=== PATIENT | male | born 1935 | race Caucasian/White ===

== ENCOUNTER 2017-08-13 08:11 | Day surgery (SDC) | payer MEDICARE ==
[2017-08-12 14:03] VITALS: BP 124/63
[2017-08-12 14:07] LABS: BASOPHILS # (AUTO) 0.07 x10^3/uL (0-0.1); BASOPHILS % (AUTO) 1 % (0-1); EOSINOPHILS # (AUTO) 0.08 x10^3/uL (0-0.4); EOSINOPHILS % (AUTO) 1 % (1-7); LYMPHOCYTES # (AUTO) 1.56 x10^3/uL (1-3.4); LYMPHOCYTES % (AUTO) 21 % (22-44); MD NO; MEAN CORPUSCULAR HEMOGLOBIN 33.9 pg (27.5-34.5); MEAN CORPUSCULAR HGB CONC 33.5 g/dL (33.2-36.2); MEAN CORPUSCULAR VOLUME 101.2 fL (81-97); MEAN PLATELET VOLUME 7.9 fL (7.4-10.4); MONOCYTES # (AUTO) 0.71 x10^3/uL (0.2-0.8); MONOCYTES % (AUTO) 10 % (2-9); NEUTROPHILS # (AUTO) 4.99 x10^3/uL (1.8-6.8); NEUTROPHILS % (AUTO) 67 % (42-75); PLATELET COUNT 224 x10^3/uL (130-400); RED BLOOD COUNT 4.05 x10^6/uL (4.38-5.82); RED CELL DISTRIBUTION WIDTH 15.2 % (9.4-14.8)
[2017-08-12 14:13] LABS: ANION GAP 6 mmol/L (5-15); CALCIUM 9.3 mg/dL (8.5-10.1); CHLORIDE 107 mmol/L (98-107); CREATININE 0.96 mg/dL (0.7-1.3)
[~2017-08-13] VITALS: Ht 180.3 cm; Wt 86.4 kg
[~2017-08-13 08:11] MED LIST: ALLO300T PO; ASPIRIN PO; ATOR40TA78 PO; CARV12.543 PO; CELE200C PO; CLOP75TA52 PO; DABI150C PO; DIAZ10TA PO; ESOM40CA PO; FURO-93 PO; IBUP-1223 PO; NITR1PAT26 TD; NORT25CA PO; NYST15CR33 TP; SILD100T PO; TAMS-11 PO; TELM40TA PO; TIOT18CA INH; TRAM50TA2 PO; VENL150C PO; ZOLP10TA5 PO
[2017-08-13] MEDS ORDERED: FENTANYL PF 100 MCG/2ML ONE ×2 (09:20→09:55)
[2017-08-13] MEDS ORDERED: MIDAZOLAM 1 MG/ML, 5ML ONE ×2 (09:20→09:55)
[2017-08-13] MEDS ORDERED: VERAPAMIL 2.5 MG/ML, 2ML ONE (09:20)
[2017-08-13] MEDS ORDERED: PRASUGREL 10 MG TABLET ONE (09:21)
[2017-08-13] MEDS ORDERED: BIVALIRUDIN 250 MG ONE (09:21)
[2017-08-13] MEDS ORDERED: NITROGLYCERIN 5 MG/ML, 10ML ONE (09:21)
[2017-08-13] MEDS ORDERED: LIDOCAINE 2%, 20ML ONE (09:21)
[2017-08-13] MEDS ORDERED: HEPARIN 1,000 UNITS/ML, 10ML ONE (09:21)
[2017-08-13] MEDS ORDERED: TEMPLATE NON-FORMULARY MED. (Sildenafil Citrate** (Viagra**) 100 MG) PO SCH (10:30)
[2017-08-13] MEDS ORDERED: SODIUM CHLORIDE 0.9% 1,000 ML IV SCH (10:35)
[2017-08-13] MEDS ORDERED: CARVEDILOL 12.5 MG TABLET PO SCH (21:00)
[2017-08-13] MEDS ORDERED: ATORVASTATIN 40 MG TABLET PO SCH (21:00)
[2017-08-14] MEDS ORDERED: VENLAFAXINE HCL 150 MG PO SCH (09:00)
[2017-08-14] MEDS ORDERED: TAMSULOSIN 0.4 MG CAP.ER.24H PO SCH (09:00)
[2017-08-14] MEDS ORDERED: NORTRIPTYLINE 25 MG CAPSULE PO SCH (09:00)
[2017-08-14] MEDS ORDERED: DABIGATRAN 150 MG CAPSULE PO SCH (09:00)
[2017-08-14] MEDS ORDERED: DIAZEPAM 10 MG TABLET PO SCH (09:00)
[2017-08-14] MEDS ORDERED: NITROGLYCERIN TD SCH (09:00)
[2017-08-14] MEDS ORDERED: (Esomeprazole Magnesium** (Nexium**) 40 MG) PO SCH (09:00)
[2017-08-14] MEDS ORDERED: ALLOPURINOL 100 MG TABLET PO SCH (09:00)
== END 2017-08-13 14:32 ==
LOC: CACL 08:11
PROVIDERS: ATTEND Internal Medicine Cardiovascular Disease
DX: I25.110 Atherosclerotic heart disease of native coronary artery with unstable angina pectoris (principal); G45.9 Transient cerebral ischemic attack, unspecified; I48.0 Paroxysmal atrial fibrillation; I10 Essential (primary) hypertension; Z87.891 Personal history of nicotine dependence; Z95.1 Presence of aortocoronary bypass graft
CPT/HCPCS: 36415; 80048; 85025; 92937; 93459; 99156; 99157; C1760; C1769; C1887; C1894; J0583; J1644; J2250; J3010; J3490; Q9967

== ENCOUNTER 2018-11-03 10:00 | Outpatient (CLI) | payer MEDICARE ==
[~2018-11-03 10:00] MED LIST changes: -NORT25CA PO; +NORT25CA78 PO
[2018-11-03 11:32] LABS: ALBUMIN 3.6 g/dL (3.4-5.0); ANION GAP 6 mmol/L (5-15); CALCIUM 9.2 mg/dL (8.5-10.1); CHLORIDE 106 mmol/L (98-107)
[2018-11-03 11:36] LABS: ALANINE AMINOTRANSFERASE 18 U/L (12-78); ALKALINE PHOSPHATASE 53 U/L (45-117); CREATININE 0.91 mg/dL (0.7-1.3); TOTAL PROTEIN 6.9 g/dL (6.4-8.2)
[2018-11-03 12:01] LABS: BASOPHILS # (AUTO) 0.05 x10^3/uL (0-0.1); BASOPHILS % (AUTO) 1 % (0-1); EOSINOPHILS # (AUTO) 0.19 x10^3/uL (0-0.4); EOSINOPHILS % (AUTO) 2 % (1-7); LYMPHOCYTES # (AUTO) 1.34 x10^3/uL (1-3.4); LYMPHOCYTES % (AUTO) 17 % (22-44); MD NO; MEAN CORPUSCULAR HEMOGLOBIN 33.3 pg (27.5-34.5); MEAN CORPUSCULAR HGB CONC 33.9 g/dL (33.2-36.2); MEAN CORPUSCULAR VOLUME 98.2 fL (81-97); MEAN PLATELET VOLUME 7.7 fL (7.4-10.4); MONOCYTES # (AUTO) 0.63 x10^3/uL (0.2-0.8); MONOCYTES % (AUTO) 8 % (2-9); NEUTROPHILS % (AUTO) 72 % (42-75); PLATELET COUNT 237 x10^3/uL (130-400); RED BLOOD COUNT 4.65 x10^6/uL (4.38-5.82); RED CELL DISTRIBUTION WIDTH 13.8 % (9.4-14.8)
== END 2018-11-03 23:59 | disposition home or self-care (01) ==
LOC: STAR 10:00
PROVIDERS: ATTEND Internal Medicine Cardiovascular Disease
DX: Z01.818 Encounter for other preprocedural examination (principal); I48.0 Paroxysmal atrial fibrillation; I25.119 Atherosclerotic heart disease of native coronary artery with unspecified angina pectoris; G45.9 Transient cerebral ischemic attack, unspecified; R55 Syncope and collapse; R06.00 Dyspnea, unspecified
CPT/HCPCS: 36415; 71046; 80053; 85025

== ENCOUNTER 2018-11-07 11:09 | Day surgery (SDC) | payer MEDICARE ==
[2018-11-03 11:27] VITALS: BP 122/78
[~2018-11-07] VITALS: Ht 180.3 cm; Wt 84.1 kg
[2018-11-07] MEDS ORDERED: MIDAZOLAM 1 MG/ML, 5ML ONE (13:32)
[2018-11-07] MEDS ORDERED: VERAPAMIL 2.5 MG/ML, 2ML ONE (13:32)
[2018-11-07] MEDS ORDERED: TICAGRELOR 90 MG TABLET ONE (13:32)
[2018-11-07] MEDS ORDERED: FENTANYL PF 100 MCG/2ML ONE (13:32)
[2018-11-07] MEDS ORDERED: NITROGLYCERIN 5 MG/ML, 10ML ONE (13:32)
[2018-11-07] MEDS ORDERED: BIVALIRUDIN 250 MG ONE (13:32)
[2018-11-07] MEDS ORDERED: HEPARIN 1,000 UNITS/ML, 10ML ONE (13:32)
[2018-11-07] MEDS ORDERED: LIDOCAINE-MPF 1%, 5ML ONE (13:33)
[2018-11-07] MEDS ORDERED: LIDOCAINE 1%, 20ML ONE (13:44)
[2018-11-07] MEDS ORDERED: DIPHENHYDRAMINE 50 MG/ML, 1ML ONE (13:45)
== END 2018-11-07 16:34 | disposition home or self-care (01) ==
LOC: CACL 11:09
PROVIDERS: ATTEND Internal Medicine Cardiovascular Disease
DX: I25.119 Atherosclerotic heart disease of native coronary artery with unspecified angina pectoris (principal); I10 Essential (primary) hypertension; E78.5 Hyperlipidemia, unspecified; J44.9 Chronic obstructive pulmonary disease, unspecified; I48.0 Paroxysmal atrial fibrillation; Z86.73 Personal history of transient ischemic attack (TIA), and cerebral infarction without residual deficits; Z95.1 Presence of aortocoronary bypass graft; Z87.891 Personal history of nicotine dependence
CPT/HCPCS: 93459; 99156; 99157; C1760; C1769; C1894; J1200; J2250; J3010; J3490; Q9967; J0583; J1644

== ENCOUNTER 2019-10-24 14:47 | Outpatient (CLI) | payer MEDICARE | END 2019-10-24 23:59 | disposition home or self-care (01) | LOC: CVU 14:47 | PROVIDERS: ATTEND Internal Medicine Cardiovascular Disease | DX: I08.3 Combined rheumatic disorders of mitral, aortic and tricuspid valves (principal); I25.119 Atherosclerotic heart disease of native coronary artery with unspecified angina pectoris | CPT/HCPCS: 93306 ==

== ENCOUNTER 2020-02-27 11:36 | Outpatient (CLI) | payer MEDICARE ==
[~2020-02-27 11:36] MED LIST changes: +NYST15CR TP; -NYST15CR33 TP
[2020-02-27 12:06] LABS: BASOPHILS # (AUTO) 0.03 x10^3/uL (0-0.1); BASOPHILS % (AUTO) 0 % (0-1); EOSINOPHILS % (AUTO) 1 % (1-7); LYMPHOCYTES % (AUTO) 14 % (22-44); MD NO; MEAN CORPUSCULAR HGB CONC 32.5 g/dL (33.2-36.2); MEAN CORPUSCULAR VOLUME 98.4 fL (81-97); MEAN PLATELET VOLUME 7.8 fL (7.4-10.4); MONOCYTES % (AUTO) 6 % (2-9); NEUTROPHILS # (AUTO) 8.67 x10^3/uL (1.8-6.8); NEUTROPHILS % (AUTO) 78 % (42-75); PLATELET COUNT 248 x10^3/uL (130-400); RED BLOOD COUNT 4.71 x10^6/uL (4.38-5.82); RED CELL DISTRIBUTION WIDTH 15.3 % (9.4-14.8)
[2020-02-27 13:14] LABS: CHLORIDE 109 mmol/L (98-107)
[2020-02-27 13:28] LABS: ALANINE AMINOTRANSFERASE 33 U/L (12-78); ALBUMIN 3.9 g/dL (3.4-5.0); ALKALINE PHOSPHATASE 52 U/L (45-117); ANION GAP 7 mmol/L (5-15); BILIRUBIN,TOTAL 0.7 mg/dL (0.2-1.0); CHOLESTEROL, TOTAL 168 mg/dL (140-239); CREATININE 1.01 mg/dL (0.7-1.3); HDL CHOL % 33 % (26-37); HDL CHOLESTEROL (DIRECT) 56 mg/dL (40-60); LDL CHOLESTEROL,CALCULATED 87 mg/dL (54-169); LDL/HDL RATIO 1.6 (0.5-3.0); T4 (THYROXINE) 8.2 mcg/dL (4.5-12.1); TOTAL PROTEIN 7.3 g/dL (6.4-8.2); TRIGLYCERIDES 123 mg/dL (50-200); VLDL CHOLESTEROL 25 mg/dL (0-25)
== END 2020-02-27 23:59 | disposition home or self-care (01) ==
LOC: LAB 11:36
PROVIDERS: ATTEND Internal Medicine Cardiovascular Disease
DX: I10 Essential (primary) hypertension (principal); I25.10 Atherosclerotic heart disease of native coronary artery without angina pectoris; I48.0 Paroxysmal atrial fibrillation; R06.00 Dyspnea, unspecified; R06.02 Shortness of breath
CPT/HCPCS: 36415; 80053; 80061; 84436; 84481; 85025